=== PATIENT | male | born 1965 | race Caucasian/White ===

== ENCOUNTER 2017-08-05 13:25 | Outpatient (CLI) ==
[2015-10-20 10:53] VITALS: BMI 27.2
[2017-08-05 13:51] LABS: BASOPHILS % (AUTO) 0.1 % (0.0-3.0); HEMATOCRIT 38.7 % (42.0-52.0); HEMOGLOBIN 13.8 g/dl (14.0-18.0); IMMATURE GRANULOCYTE % (AUTO) 0.5 % (0.0-5.0); LYMPHOCYTES # (AUTO) 1.7 K/uL (0.60-3.4); MEAN CORPUSCULAR HEMOGLOBIN 31.5 pg (27.0-31.0); MEAN CORPUSCULAR HGB CONC 35.7 (31.8-35.4); MEAN CORPUSCULAR VOLUME 88.4 fl (80.0-94.0); MONOCYTES # (AUTO) 0.6 K/uL (0.4-2.0); MONOCYTES % (AUTO) 4.4 (0-10); PLATELET COUNT 278 10^3/uL (140-440); RED BLOOD COUNT 4.38 10^6/ul (4.70-6.10); WHITE BLOOD COUNT 14.45 K/ul (4.2-10.2)
--- NOTE | 2017-08-05 13:58 | DI ---
EXAM: Five views of the cervical spine. HISTORY: Left-sided numbness, tingling TECHNIQUE: AP lateral, oblique and open mouth views of the cervical spine were obtained. FINDINGS: There is straightening of the cervical spine. There is moderate to severe degenerative di sc disease and loss of disc height seen at C5-C6. The prevertebral soft tissues are normal. The odon toid process appears intact. There is narrowing of the neural foramina bilaterally at C5-C6 secondar y to facet joint arthropathy.. IMPRESSION: No acute fractures are seen. There is moderate to severe degenerative disc disease and cervical spondylosis seen at C5-C6. There is narrowing of the neural foramina bilaterally at C5-C6.
[2017-08-05 14:30] LABS: ALBUMIN 3.8 g/dL (3.4-5.0); ALBUMIN/GLOBULIN RATIO 1.09; ANION GAP 13.7; BILIRUBIN,TOTAL 0.38 mg/dL (0.00-1.20); BUN/CREATININE RATIO 21.87; CALCIUM 9.7 mg/dL (8.2-10.2); CHOL/HDL RATIO 2.8 (4.5-6.4); CREATININE 0.96 mg/dL (0.60-1.10); POTASSIUM 3.7 mmol/L (3.5-5.1); TOTAL PROTEIN 7.3 g/dL (6.4-8.2)
== END 2017-08-05 13:26 | disposition home or self-care (01) ==
LOC: RAD 13:25
PROVIDERS: ATTEND Internal Medicine
DX: E78.5 Hyperlipidemia, unspecified (principal); R94.5 Abnormal results of liver function studies; I10 Essential (primary) hypertension; K21.9 Gastro-esophageal reflux disease without esophagitis; R20.2 Paresthesia of skin; R20.0 Anesthesia of skin
CPT/HCPCS: 36415; 80053; 80061; 83036; 84443; 85025

== ENCOUNTER 2018-02-25 07:30 | Day surgery (SDC) ==
[2015-10-20 10:53] VITALS: BMI 27.2
[2018-02-25] MEDS ORDERED: VERSED ONE (09:49)
[2018-02-25] MEDS ORDERED: DIPRIVAN 20 ML VIAL IVP ONE (09:49)
[2018-02-25] MEDS ORDERED: SUBLIMAZE ONE (09:49)
[2018-02-25 13:13] VITALS: BP 118/76; TEMP 98.6
--- NOTE | 2018-02-26 11:22 | OP ---
INDICATIONS FOR PROCEDURE: 52-year-old gentleman presents for screening colon exam. He has a strong family history of colon cancer involving his father at age 65 and two brothers at age 60 and 54. MEDICATIONS: SEE ANESTHESIA NOTES. PROCEDURE: COLONOSCOPY. REPORT: The risks, benefits, alternatives and limitations were discussed in detail with the patient. Informed consent was obtained. After adequate sedation was achieved, a digital rectal exam revealed good tone, no masses. The colonoscope was introduced into the rectum and advanced under direct visual guidance to the cecum. The cecum was identified by the appendiceal orifice and IC valve. I then slowly withdrew the scope in a circumferential manner examining the mucosa quite carefully. I looked on the proximal and distal side of folds and flexures as best as possible. I was able to retroflex the scope in the right colon and left colon to increase visualization. The colonic mucosa was unremarkable its entire length including on retroflex view of the anal canal. The prep was good except there was a little bit of adherent stool in the cecum and ascending colon. I washed and suctioned this off as best as possible. Of note, the patient did tell me that he did not drink all of his morning prep. The withdrawal time was 9 minutes and 52 seconds. The patient tolerated the procedure well with stable vital signs and pulse oximetry throughout. IMPRESSION: 1. NORMAL EXAM. RECOMMENDATIONS: 1. Office visit as needed. 2. Considering his strong family history of colon cancer and the prep, I recommend a colonoscopy examination again no later than 3 years, sooner if there are any signs or symptoms to indicate otherwise. CC: DR. VITALIY DUARTE
== END 2018-02-25 10:55 | disposition home or self-care (01) ==
LOC: SURG 07:30
PROVIDERS: ATTEND Internal Medicine Gastroenterology
DX: Z12.11 Encounter for screening for malignant neoplasm of colon (principal); Z80.0 Family history of malignant neoplasm of digestive organs
CPT/HCPCS: 00812; G0105

== ENCOUNTER 2018-09-03 12:13 | Outpatient (CLI) ==
[2015-10-20 10:53] VITALS: BMI 27.2
== END 2018-09-03 12:14 | disposition home or self-care (01) ==
LOC: LAB 12:13
PROVIDERS: ATTEND Internal Medicine
DX: E78.5 Hyperlipidemia, unspecified (principal); I10 Essential (primary) hypertension; R79.89 Other specified abnormal findings of blood chemistry; Z12.5 Encounter for screening for malignant neoplasm of prostate
CPT/HCPCS: 36415; 80053; 80061; 83036; 84439; 84443; 85025

== ENCOUNTER 2019-05-16 17:51 | Emergency (ER) ==
[2019-05-16 17:55] VITALS: BP 135/81; TEMP 98.9; BMI 27.8
[2019-05-16] MEDS ORDERED: TORADOL PO STA (18:53)
--- NOTE | 2019-05-16 18:53 | ED.PDOC ---
General ED Provider: Dr. JIMMIE HAMMONDS Chief Complaint: Extremity Pain/Injury Stated Complaint: Lt leg and ankle pain Time Seen by Physician: 18:15 Mode of Arrival: Walk-In Information Source: Patient Primary Care Provider: LEILA BURKS Nursing and Triage Documentation Reviewed and Agree: Yes Does patient meet sepsis criteria?: No System Inflammatory Response Syndrome: Not Applicable Sepsis Protocol: For patient's 13 years and over: Temp is 96.8 and below OR 101 and greater Pulse >90 BPM Resp >20/minute Acutely Altered Mental Status Are patient's symptoms suggestive of a new infection, such as: -Pneumonia -Skin, Soft Tissue -Endocarditis -UTI -Bone, Joint Infection -Implantable Device -Acute Abdominal Infection -Wound Infection -Meningitis -Blood Stream Catheter Infection -Unknown Musculoskeletal Complaint Exam - Lower Extremity Complaint/Exam Location of Pain: Reports: Left, Leg Mechanism of Injury: Reports: Trauma Onset/Duration: 1 wk Symptoms Are: Still present Onset of Pain: Reports: Immediate Initial Severity: Moderate Current Severity: Moderate Location: Reports: Diffuse Character: Reports: Spasmodic, Burning Alleviating: Reports: Rest Aggravating: Reports: Movement, Weight bearing, Prolonged standing Able to Bear Weight: Yes Associated Signs and Symptoms: Reports: Swelling, Bruising. Denies: Redness, Fever, Weakness, Numbness, Tingling Related History: Denies: Similar episode DVT Risk Factors: Reports: Recent trauma Septic Arthritis Risk Factors: Reports: None Related Surgical History: Reports: None Lower Extremity Findings: Present: Swelling NV Bundle Intact Distal to Injury: Yes Compartment Syndrome Risk Factors: Absent: Pain, Paralysis, Pallor, Pulselessness, Paresthesias Eugene's Sign Present: No Differential Diagnoses: Contusion, Strain, Other (cellulitis; abrasion ) Review of Systems - Review Of Systems Constitutional: Reports: No symptoms Eyes: Reports: No symptoms Ears, Nose, Mouth, Throat: Reports: No symptoms Respiratory: Reports: No symptoms Cardiac: Reports: No symptoms GI: Reports: No symptoms : Reports: No symptoms Musculoskeletal: Reports: No symptoms, Joint pain, Muscle pain, Muscle stiffness Skin: Reports: No symptoms Neurological: Reports: No symptoms Endocrine: Reports: No symptoms Hematologic/Lymphatic: Reports: No symptoms All Other Systems: Reviewed and Negative Past Medical History - Past Medical History Previously Healthy: No Endocrine: Reports: Dyslipidemia Cardiovascular: Reports: Hypertension Respiratory: Reports: None Hematological: Reports: None Gastrointestinal: Reports: GERD Genitourinary: Reports: None Neuro/Psych: Reports: None Musculoskeletal: Reports: None Cancer: Reports: None - Surgical History General Surgical History: Reports: None - Family History Family History: Reports: None - Social History Smoking Status: Never smoker Hx Substance Use: No Alcohol Screening: Occasionally Physical Exam - Physical Exam Appearance: Well-appearing, No pain distress, Well-nourished Ill-appearing: None Pain Distress: Mild Eyes: SKYLER, EOMI, Conjunctiva clear ENT: Ears normal, Nose normal, Oropharynx normal Neck: Supple Respiratory: Airway patent, Breath sounds clear, Breath sounds equal, Respirations nonlabored Cardiovascular: RRR, Pulses normal, No rub, No murmur GI/: Soft, Nontender, No masses, Bowel sounds normal, No Organomegaly Musculoskeletal: Limited ROM, Edema Skin: Warm, Dry, Normal color Neurological: Sensation intact, Motor intact, Reflexes intact, Cranial nerves intact, Alert, Oriented Psychiatric: Affect appropriate, Mood appropriate Critical Care Note - Critical Care Note Total Time (mins): 30 Course - Course Hematology/Chemistry: 05/16/19 18:58 05/16/19 18:58 Orders, Labs, Meds: Lab Review 05/16/19 05/16/19 05/16/19 18:53 18:58 18:58 WBC 8.39 RBC 3.95 L Hgb 12.2 L Hct 35.3 L MCV 89.4 MCH 30.9 MCHC 34.6 RDW Coeff of Ying 13.0 Plt Count 228 Immature Gran % (Auto) 0.5 Neut % (Auto) 57.7 Lymph % (Auto) 30.4 Liberty % (Auto) 7.4 Eos % (Auto) 3.3 Baso % (Auto) 0.7 Immature Gran # (Auto) 0.0 Neut # (Auto) 4.8 Lymph # (Auto) 2.6 Liberty # (Auto) 0.6 Eos # (Auto) 0.3 Baso # (Auto) 0.1 Sodium 138.0 Potassium 3.66 Chloride 100.8 Carbon Dioxide 28.8 Anion Gap 12.06 BUN 20.1 H Creatinine 1.02 Estimated GFR (MDRD) 77.00 BUN/Creatinine Ratio 19.70 Glucose 92.9 Calcium 8.92 Total Bilirubin 0.13 L AST 53.4 ALT 84.2 H Alkaline Phosphatase 96.0 Total Creatine Kinase 384.4 H CK-MB (CK-2) 1.170 CK-MB (CK-2) % 0.3000 Total Protein 6.70 Albumin 4.09 Globulin 2.61 Albumin/Globulin Ratio 1.56 Orders Category Date Time Status NPO REMINDER: IMAGING ONCE CARE 05/16/19 18:50 Completed CBC W/ AUTO DIFF Stat LAB 05/16/19 18:58 Completed CMP [COMPREHENSIVE METABOLIC PANEL] Stat LAB 05/16/19 18:58 Completed CPK [CREATINE KINASE] Stat LAB 05/16/19 18:53 Completed Cephalexin [Keflex] MEDS 05/16/19 21:27 Discontinued 500 mg PO ONCE STA Ketorolac Tromethamine [Toradol] MEDS 05/16/19 18:53 Discontinued 10 mg PO ONCE STA CT ANKLE LEFT WITH CONTRAST Stat RADS 05/16/19 18:[address] TIB/FIB LEFT W/WO CONTRAST Stat RADS 05/16/19 18:50 Completed Medications Discontinued Medications Generic Name Dose Route Start Last Admin Trade Name Sylvesterq PRN Reason Stop Dose Admin Cephalexin 500 mg 05/16/19 21:27 05/16/19 21:34 Keflex PO 05/16/19 21:28 500 mg ONCE STA Administration Ketorolac Tromethamine 10 mg 05/16/19 18:53 05/16/19 19:11 Toradol PO 05/16/19 18:54 10 mg ONCE STA Administration Vital Signs: Temp Pulse Resp BP Pulse Ox 05/16/19 17:51 98.9 F 79 18 135/81 95 Departure - Departure Time of Disposition: 21:00 Disposition: HOME SELF-CARE Discharge Problem: Traumatic leg injury, Lower leg abrasion, Traumatic hematoma of left lower leg Instructions: Pelvic Inflammatory Disease (ED), Cellulitis (ED), Leg Edema (ED) , Abrasion (ED), Hematoma (ED) Condition: Fair Pt referred to PMD for follow-up: Yes (Dr Burks) IPMP verified?: No Additional Instructions: Use Crutches for non weight bearing ambulation Keep Lt Leg Elevated at rest Use crutches for non wt bearing ambulation Wound care for abrasions Meds as directed Follow up PCP in next 3 days Off work for rest and to allow resolution of leg edema Ibuprofen 200 mg take 2-3 every 6 hrs for pain control Prescriptions: Cephalexin [Keflex] 500 mg PO BID #14 capsule Allergies/Adverse Reactions: Allergies No Known Allergies Allergy (Unverified 05/16/19 17:54) Home Medications: Ambulatory Orders Lansoprazole [Prevacid] 30 mg PO DAILY 02/25/18 Lisinopril [Zestril] 20 mg PO DAILY 02/25/18 Cephalexin [Keflex] 500 mg PO BID #14 capsule 05/16/19 Disposition Discussed With: Patient
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
[2019-05-16] MEDS ORDERED: KEFLEX PO STA (21:27)
== END 2019-05-16 21:36 | disposition home or self-care (01) ==
LOC: ED 17:51
DX: S80.12XA Contusion of left lower leg, initial encounter (principal); S80.812A Abrasion, left lower leg, initial encounter; V29.9XXA Motorcycle rider (driver) (passenger) injured in unspecified traffic accident, initial encounter
CPT/HCPCS: 36415; 80053; 82550; 82553; 85025; 96372; 99283